=== PATIENT | male | born 2000 | race Caucasian/White ===

== ENCOUNTER 2022-06-17 14:28 | Emergency (ER) | payer SELFPAY ==
[2022-06-17] MEDS ORDERED: traMADol 50 MG Tab PO ONE (15:47)
[2022-06-17] MEDS ORDERED: Ibuprofen 600 MG Tab PO ONE (15:47)
[2022-06-17] MEDS ORDERED: Cephalexin 500 MG Cap PO ONE (15:47)
== END 2022-06-17 16:03 | disposition home or self-care (01) ==
LOC: MW.ED 14:28
DX: K04.7 Periapical abscess without sinus (principal)
CPT/HCPCS: 41800; 99283; A9270; 99282